=== PATIENT | male | born 1985 | race American Indian/Alaskan Native ===

== ENCOUNTER 2021-02-28 18:30 | Emergency (ER) | payer SELFPAY ==
[2021-02-28 18:58] VITALS: BP 124/82
--- NOTE | 2021-03-01 10:12 | Electrocardiograph Report ---
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
== END 2021-02-28 22:00 | disposition left against medical advice (07) ==
LOC: ED 18:30
DX: R51.9 Headache, unspecified (principal); Z53.21 Procedure and treatment not carried out due to patient leaving prior to being seen by health care provider
CPT/HCPCS: 93005